=== PATIENT | male | born 1980 | race Caucasian/White ===

== ENCOUNTER 2016-09-01 07:06 | Inpatient (IN) | payer OTHER ==
[~2016-09-01] VITALS: Ht 172.7 cm; Wt 78.5 kg
[~2016-09-01 07:06] MED LIST: BACTRIM DS TAB1 EACH; CLEOCIN HCL150 MG PO; NORCO 5-325 TA1 EACH PO; ULTRAM 50MG TAB50 MG PO
[2016-09-01 07:07] VITALS: BP 148/111
[2016-09-01 07:52] LABS: HEMATOCRIT 51.3 % (42.0-52.0)
[2016-09-01 07:54] LABS: HEMOGLOBIN 18.3 gm/dL (14.0-18.0); MCH 32.4 pg (26.0-34.0); MCHC 35.7 g/dL (28.0-37.0); MCV 90.8 fL (80.0-100.0); PLATELET COUNT 370 thou/uL (150-400); RBC 5.65 mil/uL (4.50-6.00); RDW 13.5 % (10.5-14.5); WBC 17.6 thou/uL (4.0-11.0)
[2016-09-01 07:59] LABS: MANUAL DIFF YES
[2016-09-01 08:11] LABS: CREATININE 1.8 mg/dL (0.7-1.3); POTASSIUM 3.5 mmol/L (3.5-5.1)
[2016-09-01 08:17] LABS: ALBUMIN 5.5 g/dL (3.4-5.0); TOTAL BILIRUBIN 1.4 mg/dL (<0.1-1.0); TOTAL PROTEIN 9.7 g/dL (6.4-8.2)
[2016-09-01 08:43] LABS: PLATELET ESTIMATE NORMAL; TOTAL CELL COUNT 100
[2016-09-01 11:39] LABS: URINE BILIRUBIN NEGATIVE (Negative); URINE BLOOD 2+ (Negative); URINE COLOR YELLOW; URINE GLUCOSE-RANDOM* NEGATIVE (Negative); URINE KETONES NEGATIVE (Negative); URINE LEUKOCYTES-REFLEX NEGATIVE (Negative); URINE PROTEIN (DIPSTICK) 2+ (Negative); URINE SPECIFIC GRAVITY >= 1.030 (1.003-1.035); URINE UROBILINOGEN 0.2 E.U./dl (0.2-1.0)
[2016-09-01 11:49] LABS: CRYSTALS None Seen /LPF (None Seen); HYALINE CASTS >10 Many /LPF (None Seen); SQUAMOUS 0-3 Few /LPF (0-3); URINE RBC 3-10 Few /HPF (0-2); URINE WBC-REFLEX 0-5 Rare /HPF (0-5)
[2016-09-01 13:11] VITALS: BP 130/77
[2016-09-01 13:16] VITALS: BP 130/77
[2016-09-01 13:20] VITALS: BP 130/77
[2016-09-01 14:59] VITALS: BP 117/69
[2016-09-01 20:00] VITALS: BP 91/47
[2016-09-02 04:00] VITALS: BP 112/70
[2016-09-02 04:47] LABS: HEMATOCRIT 43.6 % (42.0-52.0); MCHC 34.6 g/dL (28.0-37.0); MCV 92.5 fL (80.0-100.0); RBC 4.72 mil/uL (4.50-6.00); RDW 13.2 % (10.5-14.5); WBC 10.6 thou/uL (4.0-11.0)
[2016-09-02 04:52] LABS: HEMOGLOBIN 15.1 gm/dL (14.0-18.0)
[2016-09-02 05:00] LABS: CALCIUM 8.1 mg/dL (8.5-10.1); POTASSIUM 3.7 mmol/L (3.5-5.1)
[2016-09-02 08:05] VITALS: BP 128/73
[2016-09-02 08:35] VITALS: BP 98/62
[2016-09-02 18:41] VITALS: BP 105/65
[2016-09-02 21:00] VITALS: BP 126/78
[2016-09-03 04:30] VITALS: BP 120/75
[2016-09-03 07:25] VITALS: BP 128/79
[2016-09-03] MEDS ORDERED: ZOFRAN ODT4 MG PO (12:23)
[2016-09-03 12:49] VITALS: BP 128/79
[2016-09-03 13:50] VITALS: BP 128/79
== END 2016-09-03 13:39 | disposition home or self-care (01) | DRG 102 ==
LOC: ER 07:06 → EROBS 11:52 → 4E 13:03
PROVIDERS: Emergency Medicine; Hospitalist
DX: G43.A0 Cyclical vomiting, in migraine, not intractable (principal); N17.0 Acute kidney failure with tubular necrosis; F17.210 Nicotine dependence, cigarettes, uncomplicated; E86.0 Dehydration; K52.9 Noninfective gastroenteritis and colitis, unspecified; F12.10 Cannabis abuse, uncomplicated; D72.829 Elevated white blood cell count, unspecified; Z79.899 Other long term (current) drug therapy; Z71.51 Drug abuse counseling and surveillance of drug abuser
CPT/HCPCS: 10084